=== PATIENT | female | born 1970 | race Caucasian/White ===

== ENCOUNTER → 2017-08-03 | Outpatient (REF) | payer OTHER | LOC: M SFHCWAGY 11:16 | DX: Z12.4 Encounter for screening for malignant neoplasm of cervix (principal) ==

== ENCOUNTER → 2017-08-03 | Outpatient (CLI) | payer BC | LOC: M WHC 10:48 | DX: Z12.31 Encounter for screening mammogram for malignant neoplasm of breast (principal); Z92.89 Personal history of other medical treatment | CPT/HCPCS: G0202 ==

== ENCOUNTER → 2018-08-16 | Outpatient (CLI) | payer BC ==
--- NOTE | 2018-08-16 12:30 | REPMRS ---
Patient History The patient states she had a clinical breast exam in 08/2018. Patient is nulliparous. No known family history of cancer. Benign excisional biopsy of the right breast, 1990. No Hormone Replacement Therapy Digital Woman Screen Mammo: August 16, 2018 - Exam #: [id number] Bilateral CC and MLO view(s) were taken. Technologist: Vane Bae, Technologist Prior study comparison: August 03, 2017, digital woman screen mammo performed at [facility]. March 10, 2015, digital woman screen mammo performed at [facility]. May 17, 2013, digital woman screen mammo performed at [facility]. FINDINGS: There are scattered fibroglandular densities. There has been no change in the appearance of the mammogram from the prior studies. There is a mild amount of scattered fibroglandular density which is fairly symmetric. There is no interval development of dominant mass, architectural distortion, or clustered microcalcification suggestive of malignancy. 3-D tomosynthesis shows no additional findings. Assessment: BI-RADS/ACR category 1 mammogram. Negative. Recommendation Routine screening mammogram of both breasts in 1 year (for women over age 40). This patient's Lifetime Breast Cancer RIsk is estimated at 13.3 %. This mammogram was interpreted with the aid of an FDA-approved computer-aided dectection system. Electronically Signed By: Carter Rogers MD 08/16/18 [id number]
== END ==
LOC: M WHC 08:53
PROVIDERS: ATTEND Nurse Practitioner Family
DX: Z12.31 Encounter for screening mammogram for malignant neoplasm of breast (principal)

== ENCOUNTER → 2018-08-16 | Outpatient (REF) | payer OTHER ==
[2018-08-17 15:05] LABS: HPV HYBRID CAPTURE II Negative (Negative)
== END ==
LOC: M SFHCWAGY 09:22
PROVIDERS: ATTEND Nurse Practitioner Family
DX: Z12.4 Encounter for screening for malignant neoplasm of cervix (principal); R87.5 Abnormal microbiological findings in specimens from female genital organs
CPT/HCPCS: 87624; G0123

== ENCOUNTER → 2019-05-10 | Outpatient (REF) | payer OTHER ==
[2019-05-10 11:45] LABS: ALBUMIN 3.9 GM/DL (3.2-5.2); ALT/SGPT 36 U/L (12-78); BILIRUBIN,TOTAL 0.5 MG/DL (0.2-1.0); BLOOD UREA NITROGEN 13 MG/DL (7-18); CALCIUM LEVEL 9.1 MG/DL (8.5-10.1); CARBON DIOXIDE LEVEL 32 MEQ/L (21-32); CHLORIDE LEVEL 105 MEQ/L (98-107); CHOLESTEROL LEVEL 174 MG/DL (<200); CHOLESTEROL RISK RATIO 2.485 (<5); CREATININE FOR GFR 0.82 MG/DL (0.55-1.30); GLOMERULAR FILTRATION RATE > 60.0 (>58); GLUCOSE, FASTING 87 MG/DL (70-100); HDL CHOLESTEROL 70 MG/DL (>40); LDL CHOLESTEROL 89 MG/DL (<100); NON-HDL-C 104 MG/DL; POTASSIUM SERUM 4.5 MEQ/L (3.5-5.1); SODIUM LEVEL 141 MEQ/L (136-145); TOTAL PROTEIN 7.2 GM/DL (6.4-8.2); TRIGLYCERIDES LEVEL 76 MG/DL (<150)
== END ==
LOC: M SFHCCLAY 07:51
PROVIDERS: ATTEND Family Medicine
DX: Z00.00 Encounter for general adult medical examination without abnormal findings (principal); Z13.220 Encounter for screening for lipoid disorders

== ENCOUNTER → 2019-08-17 | Outpatient (CLI) | payer BC, OTHER ==
--- NOTE | 2019-08-17 13:02 | REPMRS ---
Patient History The patient states she had a clinical breast exam in 2019. No known family history of cancer. Benign excisional biopsy of the right breast, 1990. No Hormone Replacement Therapy Digital Woman Screen Mammo: August 17, 2019 - Exam #: [id number] Bilateral CC and MLO view(s) were taken. Technologist: Sammie Ramos, Technologist Prior study comparison: August 16, 2018, bilateral digital woman screen mammo performed at [facility]. August 03, 2017, digital woman screen mammo performed at [facility]. March 10, 2015, digital woman screen mammo performed at [facility]. FINDINGS: The breast tissue is heterogeneously dense. This may lower the sensitivity of mammography. There is a moderate amount of heterogeneously dense fibroglandular tissue which is fairly symmetric. There is no interval development of dominant mass, architectural distortion, or grouped microcalcification typical of malignancy. There has been no change in the appearance of the mammogram from the prior studies. 3-D tomosynthesis shows no additional findings. Assessment: BI-RADS/ACR category 1 mammogram. Negative Mammogram. Recommendation Routine screening mammogram of both breasts in 1 year (for women over age 40). This patient's Lifetime Breast Cancer RIsk is estimated at 13.1 %. This mammogram was interpreted with the aid of an FDA-approved computer-aided dectection system. Electronically Signed By: Carter Rogers MD 08/17/19 [id number]
== END ==
LOC: M WHC 09:58
PROVIDERS: ATTEND Nurse Practitioner Family
DX: Z12.31 Encounter for screening mammogram for malignant neoplasm of breast (principal)

== ENCOUNTER 2019-12-21 22:43 | Inpatient (IN) | payer BC, OTHER ==
[~2019-12-21] VITALS: Ht 180.3 cm; Wt 97.5 kg
[2019-12-22] VITALS (7 sets, daily range): BP systolic 129–139; BP diastolic 69–88
[2019-12-22 00:45] LABS: BASO % 0.5 % (0.0-1.0); EOS # 0.2 10^3/uL (0.0-0.5); HEMATOCRIT 37.3 % (36.0-47.0); HEMOGLOBIN 12.3 g/dl (12.0-15.5); LYMPH # 1.3 10^3/uL (1.5-5.0); LYMPH % 14.6 % (24.0-44.0); MEAN CORPUSCULAR HEMOGLOBIN 30.3 pg (27.0-33.0); MEAN CORPUSCULAR VOLUME 91.9 fl (80.0-96.0); MONO # 0.7 10^3/uL (0.0-0.8); MONO % 7.7 % (0.0-5.0); NEUTROPHILS # 6.4 10^3/uL (1.5-8.5); NEUTROPHILS % 74.9 % (36.0-66.0); PLATELET COUNT, AUTOMATED 158 10^3/uL (150-450); RED BLOOD COUNT 4.06 10^6/uL (4.00-5.40); WHITE BLOOD COUNT 8.6 10^3/uL (4.0-10.0)
[2019-12-22 00:56] LABS: INR 1.24; PROTHROMBIN TIME 15.3 SECONDS (11.8-14.0)
[2019-12-22 00:57] LABS: PARTIAL THROMBOPLASTIN TIME 30.1 SECONDS (25.0-38.4)
[2019-12-22 01:29] LABS: BLOOD UREA NITROGEN 12 MG/DL (7-18); CALCIUM LEVEL 8.5 MG/DL (8.5-10.1); CARBON DIOXIDE LEVEL 28 MEQ/L (21-32); CHLORIDE LEVEL 104 MEQ/L (98-107); CK-MB VALUE MASS < 1.0 NG/ML (<3.6); CPK CREATINE PHOSPHOKINASE 41 U/L (26-192); CREATININE FOR GFR 0.71 MG/DL (0.55-1.30); FREE THYROXINE INDEX 3.6 % (1.3-4.8); GLOMERULAR FILTRATION RATE > 60.0 (>58); GLUCOSE, FASTING 105 MG/DL (70-100); MB/CK RELATIVE INDEX 2.44 (< OR =4); POTASSIUM SERUM 3.8 MEQ/L (3.5-5.1); SODIUM LEVEL 139 MEQ/L (136-145); T UPTAKE 34 % (30-39); THYROXINE (T4) 10.6 UG/DL (4.5-12.0); TROPONIN I < 0.02 NG/ML (< 0.10)
[2019-12-22] MEDS ORDERED: ISOVUE-370 76% 100ML VIAL As Ordered ONE (01:45)
--- NOTE | 2019-12-22 02:35 | REPVR ---
PROCEDURE INFORMATION: Exam: CT Angiography Chest With Contrast Exam date and time: 12/22/19 (1:55am) Age: 49 years old Clinical indication: Dyspnea and chest pain TECHNIQUE: Imaging protocol: Computed tomographic angiography of the chest with intravenous contrast. 3D rendering: MIP and/or 3D reconstructed images were created by the technologist. Radiation optimization: All CT scans at this facility use at least one of these dose optimization techniques: automated exposure control; mA and/or kV adjustment per patient size (includes targeted exams where dose is matched to clinical indication); or iterative reconstruction. Contrast material: Iso Contrast volume: 75 ml Contrast route: Antecubital vein COMPARISON: No relevant prior studies available FINDINGS: Pulmonary arteries: Multiple acute bilateral pulmonary emboli -- in secondary and more peripheral arterial branches (including RLL, LLL, RUL, lingular, and perhaps CHANDRIKA branches)(to all lobes, or nearly all lobes). Aorta: Unremarkable. No aortic aneurysm. No aortic dissection. Lungs: Bibasilar hazy groundglass opacities. More confluent opacity posteriorly at the left lung base. No masses. Pleural space: Unremarkable. No pneumothorax. No pleural effusions. Heart: Unremarkable. No cardiomegaly. No pericardial effusion. Lymph nodes: Unremarkable. No enlarged lymph nodes. Bones/joints: Unremarkable. No acute fracture. Soft tissues: Unremarkable. IMPRESSION: Acute bilateral pulmonary emboli, involving numerous lobes, bilaterally. No 'saddle embolus'. No acute aortic pathology. Groundglass opacities at each lung base. More confluent, extensive infiltrate at the left lung base -- perhaps a concomitant pneumonia. Electronically signed by: Margaret Peralta On 12/22/2019 02:34:38 AM
[2019-12-22] MEDS ORDERED: AZITHROMYCIN INJ 500 MG, VIAL MATE ADAPTER 1 EACH in D5W 250 ML IV ONE (02:45)
[2019-12-22] MEDS ORDERED: HEPARIN DRIP 25,000 UNITS in IV 1 EA IV SCH ×2 (02:57→10:52)
[2019-12-22] MEDS ORDERED: HEPARIN SOD (PORCINE) 5000UNITS/ML VIAL (J1644 PER 1000UNITS) IV ONE ×2 (03:00→11:00)
[2019-12-22] MEDS ORDERED: cefTRIAXone SOD 1 GM in D5W MINI-BAG PLUS 50 ML IV ONE (03:00)
[2019-12-22] MEDS ORDERED: CYAN100050 PO (03:36)
[2019-12-22] MEDS ORDERED: VITA500038 PO (03:36)
[2019-12-22] MEDS ORDERED: ACET-1146 PO (03:36)
[2019-12-22 03:39] LABS: C REACTIVE PROTEIN QUANTITATIV 6.64 MG/DL (0.00-0.30); LDH LACTATE DEHYDROGENASE 245 U/L (84-246)
[2019-12-22] MEDS ORDERED: ALBUTEROL 90 MCG/ACT 8GM HFA INHALER INH PRN (03:45)
[2019-12-22 04:10] LABS: D-DIMER QUANT > 4000 ng/ml (<500)
--- NOTE | 2019-12-22 04:24 | HPEPDOC ---
[facility] Medical History & Physical Date of Admission December 22, 2019 Date of Service: December 22, 2019 Primary Care Physician: Ralph Salas Attending Physician: LINN SANCHEZ MD History and Physical CHIEF COMPLAINT: SOB with pleuritic chest pain HISTORY OF PRESENT ILLNESS: Kacey is a very pleasant 49-year-old female with no significant medical history other than bilateral cataracts and previous detached retina (right eye) who presented to the ED with a chief complaint of shortness of breath and pleuritic chest pain. On afternoon (12/19), patient began to have discomfort with inspiration, which led to anxiety and subsequent shortness of breath. That evening she also felt feverish and had an oral temperature of 100.1. She called her PCPs office on Tuesday morning regarding her symptoms and subsequently received COVID-19 testing in the afternoon. Come Tuesday evening around 7 PM, the patient was lying on her right side and acutely began to expe rience sharp pleuritic chest pain even worse than the day before over her left flank radiating to her back and up into her neck. The pain soon transitioned from only with respiration, to a constant pain. She then began to experience associated palpitations. It was at this point that she presented to the ED. Her only recent travel was returning from [place] in early October. She takes no medications on an outpatient basis, and has had no recent sick contacts as she has been staying home and not working. In the ED, she was afebrile, hemodynamically stable and initial labs (CBC, BMP, ABG) were relatively unremarkable other than CRP of 6.64. A CTA showed bilateral showering of pulmonary emboli with no saddle embolus. There was also by basilar groundglass opacities. Rapid Covid testing was performed and was negative. She verbally confirms her CODE STATUS is full code. PAST MEDICAL HISTORY: Bilateral cataracts, s/p surgical removal Detached retina, right eye PAST SURGICAL HISTORY: Surgical removal of right breast cyst, ultimately benign Two right knee ACL surgeries Right knee meniscal repair SOCIAL HISTORY: , lives at home with her . 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 Denies current or former tobacco use. Drinks alcohol socially. Denies current or former illegal drug use. FAMILY HISTORY: Father: Provoked DVT, 2018 Mother's side of the family has a history of aneurysms ALLERGIES: Allergic to morphine in the form of significant nausea and vomiting. REVIEW OF SYSTEMS: CONSTITUTIONAL: Endorses recent fever. Denies chills, night sweats, unintentional change in weight HEENT:. Denies rhinorrhea, nasal congestion, dysphagia, odynophagia, recent changes in baseline vision or hearing. CARDIOVASCULAR: Endorses palpitations with significant pleuritic chest pain. Denies typical chest pain or chest pressure RESPIRATORY: Endorses shortness of breath as a result of inspiratory pleuritic chest pain; endorses dry cough. GASTROINTESTINAL: Denies abdominal pain, nausea, vomiting, diarrhea, const ipation GENITOURINARY: Denies dysuria or hematuria. MUSCULOSKELETAL: Denies specific myalgias or arthralgias NEUROLOGICAL:. Denies numbness, paresthesias, difficulty focusing or concentrating. HOME MEDICATIONS: Please see below. PHYSICAL EXAMINATION: VITAL SIGNS: Temperature 98.2, pulse 76, respiratory rate 18, blood pressure 124/76, pulse oximetry 100 % on room air. GENERAL APPEARANCE: Pleasant female who appears stated age. Well- developed, well-nourished. Lying upright in bed. No acute distress. Alert and oriented 3. HEENT: Normocephalic, atraumatic., Anicteric, noninjected sclera. Trachea is midline. Oropharyngeal exam was deferred as patient's Covid result had not yet returned. CARDIOVASCULAR: Regular rate, regular rhythm. +S1, S2., No murmur, rub or gallop appreciated. Adequate capillary refill. 2+ radial and posterior tibial pulses bilaterally. LUNGS: Faint crackles left lung base posteriorly with diminished breath sounds secondary to decreased tidal volume. No wheezes or rhonchi appreciated. Symmetric chest expansion. Speaking full sentences. Breathing room air. No accessory muscle use. ABDOMEN: Soft, nontender and nondistended with no guarding or rigidity. Hyp oactive bowel sounds. EXTREMITIES: Lower extremities free of edema with no clubbing or signs of cyan osis NEUROLOGICAL: Awake, alert and oriented 3. No focal neurologic deficits appreciated. Non-dysarthric speech. This monitored appropriately to questions and commands. PSYCHIATRIC: Mood and affect appear appropriate. LABORATORY DATA: Please see below. IMAGING: CT angiography of the chest with contrast, 12/22/19: Impression acute bilateral pulmonary emboli, involving numerous lobes, bilaterally. No 'saddle embolus.' No acute aortic pathology. Groundglass opacities at each lung base. More confluent, extensive infiltrate at the left lung base - - perhaps a concomitant pneumonia. MICROBIOLOGY: Please see below. ASSESSMENT & PLAN: This is a 49yo female without a very significant past medical history of present the ED with pleuritic chest pain, shortness of breath, and palpitati ons with recent fever, who was found to have bilateral pulmonary emboli throughout multiple lung lobes, as well as bi-basilar groundglass opacities. #Acute bilateral pulmonary emboli -Etiology at this point is unknown but appears to be unprovoked since patient has no recent extensive travel, periods of immobility, significant musculoskeletal injuries/fractures, does not take oral contraceptives or estrogen-based agents of any kind -Heparinized overnight on gtt, with likely plan to switch to PO noac (eliquis) to follow during day -on telemetry -After patient is anticoagulated and stabilized for discharge, recommendation is for outpatient follow-up with hematology to pursue etiology in setting of unprovoked PE: hypercoagulopathies, malignancies, etc. #Community acquired pneumonia -Chest CTA showed bibasilar groundglass opacities with more extensive infiltrate at the left lung base -Afebrile, hemodynamically stable, no elevated WBC -Started on empiric antibiotics: Ceftriaxone, azithromycin -pro-calcitonin ordered -prn q4h albuterol inhaler -sputum Cx, test for atypical pna agents, and incentive spirometry ordered -rapid COVID negative test in ED #DVT prophylaxis: heparin gtt for acute b/l PE Vital Signs Vital Signs Date Time Temp Pulse Resp B/P (MAP) Pulse Ox O2 Delivery O2 Flow Rate FiO2 12/22/19 02:43 76 100 12/22/19 01:30 124/76 (92) 12/21/19 23:00 98.2 18 Room Air Laboratory Data Labs 24H Laboratory Tests 2 12/22/19 00:28: Immature Granulocyte % (Auto) 0.3, Neutrophils (%) (Auto) 74.9H, Lymphocytes (%) (Auto) 14.6L, Monocytes (%) (Auto) 7.7H, Eosinophils (%) (Auto) 2.0, Basophils (%) (Auto) 0.5, Neutrophils # (Auto) 6.4, Lymphocytes # (Auto) 1.3L, Monocytes # (Auto) 0.7, Eosinophils # (Auto) 0.2, Basophils # (Auto) 0.0, Nucleated Red B lood Cells % (auto) 0.0, Prothrombin Time 15.3H, Prothromb Time International Ratio 1.24, Activated Partial Thromboplast Time 30.1, D-Dimer, Quantitative > 4000H, Anion Gap 7L, Glomerular Filtration Rate > 60.0, Calcium Level 8.5, Lactate Dehydrogenase 245, Total Creatine Kinase 41, Creatine Kinase MB < 1.0, Creatine Kinase MB Relative Index 2.44, Troponin I < 0.02, C-Reactive Protein, Quantitative 6.64H, Thyroid Stimulating Hormone (TSH) 2.330, Free Thyroxine Index 3.6, Thyroxine (T4) 10.6, Triiodothyronine (T3) Uptake 34 12/22/19 00:42: POC pH (Misc Panel) 7.430, POC Base Excess (Misc Panel) 2.0, POC Saturated Percent O2 (Misc) 96, POC pO2 (Misc Panel) 82.0, POC pCO2 (Misc Panel) 38.8, POC HCO3 (Misc Panel) 25.8, POC Total CO2 (Misc Panel) 27.0 12/22/19 03:49: CBC/BMP Laboratory Tests 12/22/19 00:28 Home Medications Scheduled Cholecalciferol (Vitamin D3) (Vitamin D3) 125 Mcg Tablet, 125 MCG PO DAILY Cyanocobalamin (Vitamin B-12) (Vitamin B-12) 1,000 Mcg Tablet, 1,000 MCG PO DAILY Scheduled PRN Acetaminophen/Diphenhydramine (Acetaminophen-Diphenhyd 500-25) 1 Each Tablet, 2 TAB PO QHS PRN for PAIN Allergies Coded Allergies: morphine (Verified Adverse Reaction, Intermediate, nausea , 12/21/19) GME ATTESTATION My faculty preceptor for this patient encounter was physically present during the encounter and was fully available. All aspects of the patient interview, examination, medical decision making process, and medical care plan development were reviewed and approved by the faculty preceptor. The faculty preceptor is aware and concurs with the plan as stated in the body of this note and will attest to such by his/her cosignature. ATTENDING NOTE I independently examined and discussed the plan for Ms. Combs with the resident physician and agree with the above assessment and plan. 49 yo W with no significant past medical history who presented wtih SOB and exertional chest pain and found to have multifocal PNA and bilateral numerous scattered PEs with out a clear precipitant at this time. Initially her history was suggestive of possible covid-19 given recent exposure to a client who returned from [place] in October and recently went to [place] in October, and she had recent fever, chills 2d prior to presentation. COvid-19 was ultimately negative, and we are going to continue heparin gtt that was started in the ED and ceftriaxone/azithro for CAD with pending infectious workup and will require investigation for etiology of PEs. A-FIB/CHADSVASC A-FIB History Current/History of A-Fib/PAF?: No Current PO Anticoag Therapy: No (getting heparin gtt) SHERIN FRAGOSO D.O. December 22, 2019 04:24 LINN SANCHEZ MD December 22, 2019 21:40
[2019-12-22] MEDS: CYANOCOBALAMIN 500 MCG TAB PO SCH (09:34)
[2019-12-22] MEDS ORDERED: RIVAROXABAN 15 MG TAB (XARELTO) PO SCH (10:45)
[2019-12-22] MEDS ORDERED: HEPARIN SOD (PORCINE) 5000UNITS/ML VIAL (J1644 PER 1000UNITS) IV PRN (11:00)
[2019-12-22 11:33] LABS: HEMATOCRIT 39.8 % (36.0-47.0); HEMOGLOBIN 13.1 g/dl (12.0-15.5); MEAN CORPUSCULAR HEMOGLOBIN 30.5 pg (27.0-33.0); MEAN CORPUSCULAR HGB CONC 32.9 g/dl (32.0-36.5); MEAN CORPUSCULAR VOLUME 92.8 fl (80.0-96.0); PLATELET COUNT, AUTOMATED 179 10^3/uL (150-450); RED BLOOD COUNT 4.29 10^6/uL (4.00-5.40)
--- NOTE | 2019-12-22 12:18 | IPNPDOC ---
Date Seen The patient was seen on 12/22/19. Progress Note SUBJECTIVE: Patient had no overnight events, saturating well on room air, able to speak full sentences. She reports no change in left lateral rib pain. LDH within normal limits. OBJECTIVE PHYSICAL EXAMINATION: VITAL SIGNS: Please see below. GENERAL: Female in No distress HEENT: Normocephalic, atraumatic, moist mucous membranes NECK: Supple CARDIOVASCULAR EXAMINATION: S1, S2 RESPIRATORY EXAMINATION: Diminished breath sounds on the right ABDOMINAL EXAMINATION: Soft, nontender, nondistended, positive bowel sounds EXTREMITIES: no edema SKIN: No rash NEUROLOGICAL EXAMINATION: Awake PSYCHIATRIC EXAMINATION: Calm and cooperative, appropriate affect LABORATORY DATA, IMAGING STUDIES, MICROBIOLOGY: Please see below. ASSESSMENT AND PLAN: Patient is a 49-year-old female with PMH of obesity (BMI of 29) presenting with unprovoked PE. #Unprovoked PE, patient does not smoke, reports active, not sedentary lifestyle, no family history of dyscrasias, currently not on control. We'll obtained a CT abdomen and pelvis to evaluate for pancreatic cancer, will also order CT chest with contrast to further evaluate infiltrate, bilateral lower extremity Dopplers for DVT, will also order protein C, protein S, factor V Leiden, antithrombin 3, Cardiolipin and serology. -Will continue heparin GTT, evaluate for PTT and INR, will start warfarin bridge with an INR goal 2-3 -Will also order hepatic panel, lipase level, if elevated, will order CA-19-9, CEA -If negative workup, we'll discharge patient on at least 3 months of anticoagulation with PCP follow-up in one week #obesity: wt loss encouraged, f/u outpt #Infiltrate, likely secondary to CAP vs oncological etiology: Continue antibiotics, elevated CRP DVT ppx: See above Full code Dispo: pending results VS, I&O, 24H, Fishbone Vital Signs/I&O Vital Signs Date Time Temp Pulse Resp B/P (MAP) Pulse Ox O2 Delivery O2 Flow Rate FiO2 12/22/19 06:15 99.9 85 18 138/88 (105) 100 Room Air Laboratory Data 24H LABS Laboratory Tests 2 12/22/19 00:28: Immature Granulocyte % (Auto) 0.3, Neutrophils (%) (Auto) 74.9H, Lymphocytes (%) (Auto) 14.6L, Monocytes (%) (Auto) 7.7H, Eosinophils (%) (Auto) 2.0, Basophils (%) (Auto) 0.5, Neutrophils # (Auto) 6.4, Lymphocytes # (Auto) 1.3L, Monocytes # (Auto) 0.7, Eosinophils # (Auto) 0.2, Basophils # (Auto) 0.0, Nucleated Red Blood Cells % (auto) 0.0, Prothrombin Time 15.3H, Prothromb Time International Ratio 1.24, Activated Partial Thromboplast Time 30.1, D-Dimer, Quantitative > 4000H, Anion Gap 7L, Glomerular Filtration Rate > 60.0, Calcium Level 8.5, Lactate Dehydrogenase 245, Total Creatine Kinase 41, Creatine Kinase MB < 1.0, Creatine Kinase MB Relative Index 2.44, Troponin I < 0.02, C-Reactive Protein, Quantitative 6.64H, Thyroid Stimulating Hormone (TSH) 2.330, Free Thyroxine Index 3.6, Thyroxine (T4) 10.6, Triiodothyronine (T3) Uptake 34 12/22/19 00:42: POC pH (Misc Panel) 7.430, POC Base Excess (Misc Panel) 2.0, POC Saturated Percent O2 (Misc) 96, POC pO2 (Misc Panel) 82.0, POC pCO2 (Misc Panel) 38.8, POC HCO3 (Misc Panel) 25.8, POC Total CO2 (Misc Panel) 27.0 12/22/19 03:49: Coronavirus (COVID-19)(PCR) NEGATIVE CBC/BMP Laboratory Tests 12/22/19 00:28 AZUCENA AUGUST MD December 22, 2019 07:13
[2019-12-22 12:51] LABS: ALBUMIN 3.5 GM/DL (3.2-5.2); BILIRUBIN,DIRECT 0.2 MG/DL (0.0-0.2); BILIRUBIN,TOTAL 0.4 MG/DL (0.2-1.0); TOTAL PROTEIN 7.8 GM/DL (6.4-8.2)
--- NOTE | 2019-12-22 14:01 | REP ---
Clinical: Pulmonary embolus . Technique: Peralta scale and color Doppler evaluation of the bilateral lower extremities using linear high frequency transducer. Findings: Left lower extremity demonstrates normal compressibility and wave patterns in response to respiration and augmentation without evidence for deep venous thrombosis. Right lower extremity demonstrates small focal area of nonocclusive thrombus in the popliteal vein. Remainder of the examination is normal. Impression: Focal area of acute nonocclusive thrombus in the right popliteal vein. Electronically Signed by Oh Sanchez MD 12/22/2019 01:52 P
[2019-12-22] MEDS: HEPARIN SOD (PORCINE) 5000UNITS/ML VIAL (J1644 PER 1000UNITS) IV PRN (17:00)
[2019-12-22] MEDS: WARFARIN SOD 5 MG TAB PO SCH (17:02)
[2019-12-22] MEDS: HEPARIN DRIP 25,000 UNITS in IV 1 EA IV SCH (22:57)
[2019-12-22] MEDS ORDERED: IBUPROFEN 400 MG TAB PO PRN (23:15)
[2019-12-23 04:15] VITALS: BP 120/67
[2019-12-23] MEDS ORDERED: AZITHROMYCIN INJ 500 MG, VIAL MATE ADAPTER 1 EACH in D5W 250 ML IV SCH (05:00)
[2019-12-23 05:49] LABS: HEMATOCRIT 38.3 % (36.0-47.0); HEMOGLOBIN 12.6 g/dl (12.0-15.5); MEAN CORPUSCULAR HEMOGLOBIN 30.6 pg (27.0-33.0); MEAN CORPUSCULAR HGB CONC 32.9 g/dl (32.0-36.5); PLATELET COUNT, AUTOMATED 194 10^3/uL (150-450); RED BLOOD COUNT 4.12 10^6/uL (4.00-5.40); WHITE BLOOD COUNT 7.7 10^3/uL (4.0-10.0)
[2019-12-23 06:00] LABS: INR 1.24; PROTHROMBIN TIME 15.3 SECONDS (11.8-14.0)
[2019-12-23] MEDS ORDERED: cefTRIAXone SOD 2 GM in D5W MINI-BAG PLUS 50 ML IV SCH (06:00)
[2019-12-23 06:02] LABS: PARTIAL THROMBOPLASTIN TIME 84.2 SECONDS (25.0-38.4)
[2019-12-23 06:48] LABS: ALBUMIN 3.3 GM/DL (3.2-5.2); ALT/SGPT 160 U/L (12-78); BILIRUBIN,DIRECT 0.3 MG/DL (0.0-0.2); BLOOD UREA NITROGEN 10 MG/DL (7-18); CALCIUM LEVEL 8.5 MG/DL (8.5-10.1); CARBON DIOXIDE LEVEL 27 MEQ/L (21-32); CHLORIDE LEVEL 103 MEQ/L (98-107); CREATININE FOR GFR 0.63 MG/DL (0.55-1.30); GLOMERULAR FILTRATION RATE > 60.0 (>58); GLUCOSE, FASTING 90 MG/DL (70-100); MAGNESIUM LEVEL 2.2 MG/DL (1.8-2.4); SODIUM LEVEL 138 MEQ/L (136-145); TOTAL PROTEIN 7.6 GM/DL (6.4-8.2)
[2019-12-23 07:33] VITALS: BP 117/72
[2019-12-23] MEDS: CYANOCOBALAMIN 500 MCG TAB PO SCH (08:16)
[2019-12-23] MEDS: GASTROGRAFIN SOLUTION 30ML PO SCH ×2 (08:16→08:51)
--- NOTE | 2019-12-23 10:17 | REP ---
Clinical: Pneumonia. Technique: Axial contrast enhanced images from the thoracic inlet to the upper abdomen with coronal and sagittal re-formations using 100 ml Isovue 370 intravenous contrast material (followed by CT of the abdomen and pelvis). Comparison: 12/22/2019 Findings: Current examination is suboptimal for the evaluation of previously diagnosed bilateral pulmonary emboli although there are suggestions for continued emboli to the bilateral lower lobes. Left lower lobe consolidation/atelectasis appears slightly increased from prior examination along with small left pleural effusion, with lingular and trace right basilar atelectasis noted. No pneumothorax. No significant adenopathy. Mediastinum demonstrates normal thoracic aorta and heart/pericardium. Surrounding musculoskeletal structures are intact without acute osseous abnormality. Impression: 1. Moderate left lower lobe consolidation/atelectasis along with trace lingular and right lower lobe atelectasis. 2. Previously identified pulmonary emboli are poorly distinguished on current examination due to technique. Electronically Signed by Oh Sanchez MD 12/23/2019 10:09 A
--- NOTE | 2019-12-23 10:23 | REP ---
Clinical: Evaluate for possible pancreatic cancer. Technique: Axial contrast enhanced images from the lung bases to the pubic symphysis using oral (per protocol) and 100 ml Isovue 370 intravenous contrast material with coronal and sagittal re-formations. Comparison: None. Findings: Moderate left lower lobe consolidation/atelectasis and trace right basilar atelectasis noted. Liver, spleen, pancreas, gallbladder, and bilateral adrenal glands appear normal. The enteric system is without obstruction or acute inflammatory process. The kidneys are essentially normal in appearance with 8 mm simple left renal cyst identified as well as fullness to the bilateral collecting systems including newly ureters extending into the pelvis likely secondary to extrinsic compression by large bilateral complex adnexal cystic lesions. Further evaluation of the pelvis demonstrates normal appearance to the uterus and bladder. No ascites. No adenopathy. No free air. Abdominal aorta and vasculature appear normal. Osseous structures intact without acute abnormality. Impression: 1. Large complex bilateral adnexal cystic lesions. Pelvic ultrasound should be considered for further investigation. These findings seemed to cause mild fullness to the bilateral urinary collecting system likely due to extrinsic compression of the distal ureters. 2. Simple 8 mm left renal cyst. Electronically Signed by Oh Sanchez MD 12/23/2019 10:15 A
[2019-12-23 10:44] VITALS: BP 127/80
--- NOTE | 2019-12-23 11:19 | IPNPDOC ---
Date Seen The patient was seen on 12/23/19. Progress Note SUBJECTIVE: No o/n events. Pt reports consuming chlorella supplement from 07/2019-10/2019, which can increase vitamin K levels. Performed CT chest and abdomen, CT chest reveals no changes from previous with moderate LLL consolidation/atelectasis with trace lingular and right lower lobe atelectasis. CT abdomen with contrast, however, did reveal large complex bilateral adnexal cystic lesions with recommendations for a pelvic ultrasound. There is also a simple cyst. 8 mm on the left kidney. OBJECTIVE OBJECTIVE PHYSICAL EXAMINATION: VITAL SIGNS: Please see below. GENERAL: Female in No distress HEENT: Normocephalic, atraumatic, moist mucous membranes NECK: Supple CARDIOVASCULAR EXAMINATION: S1, S2 RESPIRATORY EXAMINATION: Diminished breath sounds on the right ABDOMINAL EXAMINATION: Soft, nontender, nondistended, positive bowel sounds EXTREMITIES: no edema SKIN: No rash NEUROLOGICAL EXAMINATION: Awake PSYCHIATRIC EXAMINATION: Calm and cooperative, appropriate affect LABORATORY DATA, IMAGING STUDIES, MICROBIOLOGY: Please see below. ASSESSMENT AND PLAN: Patient is a 49-year-old female with PMH of obesity (BMI of 29) presenting with unprovoked PE. #Unprovoked PE, patient does not smoke, reports active, not sedentary lifestyle, no family history of dyscrasias, currently not on control. We'll obtained a CT abdomen and pelvis to evaluate for pancreatic cancer, will also order CT chest with contrast to further evaluate infiltrate, bilateral lower extremity Dopplers for DVT, will also order protein C, protein S, factor V Leiden, antithrombin 3, Cardiolipin and serology. -Will continue heparin GTT, evaluate for PTT and INR, will start warfarin bridge with an INR goal 2-3 -Will also order hepatic panel, lipase level, if elevated, will order CA-19-9, CEA -If negative workup, we'll discharge patient on at least 3 months of anticoagulation with PCP follow-up in one week -Started patient on warfarin, currently subtherapeutic, we'll continue to monitor INR #complex bilateral adnexal cystic lesions/Elevated transaminase: Clear etiology, will monitor, patient asymptomatic, will order CA 125 for multiple cysts found and adnexa, could be associated with liver, lipase 128, outpt f/u #Infiltrate, likely secondary to CAP vs oncological etiology: Continue antibiotics, elevated CRP -Transition to by mouth today, incentive spirometry #obesity: wt loss encouraged, f/u outpt DVT ppx: See above Full code Dispo: pending theraputic INR 32 minutes were spent on care VS, I&O, 24H, Fishbone Vital Signs/I&O Vital Signs Date Time Temp Pulse Resp B/P (MAP) Pulse Ox O2 Delivery O2 Flow Rate FiO2 12/23/19 07:33 97.5 76 16 117/72 (87) 99 Room Air I&O- Last 24 Hours up to 6 AM 12/23/19 06:00 Intake Total 3944 ml Output Total 3475 ml Balance 469 ml Laboratory Data 24H LABS Laboratory Tests 2 12/22/19 11:25: Nucleated Red Blood Cells % (auto) 0.0, Activated Partial Thromboplast Time 35.7 12/22/19 16:04: Activated Partial Thromboplast Time 47.9H 12/22/19 23:02: Activated Partial Thromboplast Time 111.0H 12/23/19 05:39: Nucleated Red Blood Cells % (auto) 0.0, Activated Partial Thromboplast Time 84.2H, Prothrombin Time 15.3H, Prothromb Time International Ratio 1.24, Anion Gap 8, Glomerular Filtration Rate > 60.0, Calcium Level 8.5, Magnesium Level 2.2, Total Bilirubin 1.0#, Direct Bilirubin 0.3H, Aspartate Amino Transf (AST/SGOT) 75H, Alanine Aminotransferase (ALT/SGPT) 160H, Alkaline Phosphatase 376H, Total Protein 7.6, Albumin 3.3, Albumin/Globulin Ratio 0.8L 12/23/19 07:47: CBC/BMP Laboratory Tests 12/22/19 11:25 12/23/19 05:39 Microbiology Microbiology 12/22/19 Stool Occult Blood ([facility]) - Final, Complete AZUCENA AUGUST MD December 23, 2019 11:15
[2019-12-23] MEDS: HEPARIN SOD (PORCINE) 5000UNITS/ML VIAL (J1644 PER 1000UNITS) IV PRN (12:15)
[2019-12-23 14:00] VITALS: BP 158/83
[2019-12-23] MEDS: HEPARIN DRIP 25,000 UNITS in IV 1 EA IV SCH (15:10)
--- NOTE | 2019-12-23 15:38 | REP ---
Clinical: Complex bilateral adnexal cysts. Technique: Transabdominal pelvic ultrasound followed by transvaginal examination for better evaluation of the endometrium and adnexa with color Doppler evaluation of the ovaries. Findings: Bladder is normal and measures 14.3 x 12.2 by a 5.7 cm. Heterogeneous anteverted uterus measures 10.3 x 4.0 x 5.3 cm. Endometrial complex is thickened to 18 mm. A posterior left intramural fibroid is identified measuring 2.4 x 1.7 x 2.9 cm. The right ovary measures 9.6 x 7.7 x 6.3 cm (RI 0.79) and is dominated by a complex septated cystic changes. The left ovary measures 7.1 x 4.1 x 5.9 cm (RI 0.73) and demonstrates a complex mixed echotexture possibly representing large hemorrhagic cyst. No pelvic fluid. Impression: 1. Uterus demonstrates 2.9 cm posterior intramural fibroid and heterogeneous thickened endometrial complex to 18 mm. 2. Large complex bilateral adnexal/ovarian lesions may represent physiologic complex and hemorrhagic cysts although mass lesion cannot definitively be excluded. Short-term follow-up in 4-6 weeks to evaluate for resolution may be warranted. Electronically Signed by Oh Sanchez MD 12/23/2019 03:30 P
[2019-12-23] MEDS: WARFARIN SOD 5 MG TAB PO SCH (17:15)
--- NOTE | 2019-12-23 18:02 | DS.PDOC ---
Discharge Summary General Date of Admission December 22, 2019 at 03:39 Date of Discharge 12/24/19 Discharge Summary PROCEDURES PERFORMED DURING STAY: None. ADMITTING DIAGNOSES: 1. PE, unprovoked. DISCHARGE DIAGNOSES: 1.PE, RLE DVT, suspected adnexal/uterine CA. COMPLICATIONS/CHIEF COMPLAINT: Multifocal Pneumonia, Pulmonary Emboli. HISTORY OF PRESENT ILLNESS/HOSPITAL COURSE: Patient is a 49-year-old G0 F with PMH of obesity (BMI of 29) presenting with unprovoked PE confirmed on CTA Chest. Patient does not smoke, reports active, not sedentary lifestyle, no family history of dyscrasias, currently not on control, currently at [facility]- menopausal. Performed doppler u/s revealing RLE DVT. Patient was initially treated with heparin GTT with plans to transition to warfarin, current INR was subtherapeutic. However, due to further imaging results, anticoagulation was changed to Lovenox. There was also an infiltrate found on imaging, diagnosis CAP, will also be discharged on antibiotic course. CT chest reveals no changes from previous with moderate LLL consolidation/atelectasis with trace lingular and right lower lobe atelectasis. CT abdomen with contrast, however, did reveal large complex bilateral adnexal cystic lesions with recommendations for a pelvic ultrasound. There is also a simple cyst. 8 mm on the left kidney. Pelvic ultrasound reveals large complex bilateral ovarian lesions right ovary measuring 9.6 x 7.7 x 6.3 cm dominated by complex septal cystic changes, left ovary measuring 7.1 x 4.1 x 5.9 cm with complex mixed echotexture possibly representing large hemorrhagic cysts, uterus demonstrates 2.9. Posterior intramural fibroid and heterogeneous thickened endometrial complex 18 mm. Discussed case with [facility], Dr. Farshad Mcgee, obtained CEA 125 and human epididymis proteins 4, pending results. I'll up with [facility] in 1 week, also follow-up with PCP in 1 week. Other labs pending include protein C, protein S, factor V Leiden, antithrombin 3, Cardiolipin and serology. She'll be discharged on Lovenox 1.5 mg/kg every 24 hours. All questions were answered. DISCHARGE MEDICATIONS: Please see below. ALLERGIES: Please see below. OBJECTIVE PHYSICAL EXAMINATION: VITAL SIGNS: Please see below. GENERAL: Female in No distress HEENT: Normocephalic, atraumatic, moist mucous membranes NECK: Supple CARDIOVASCULAR EXAMINATION: S1, S2 RESPIRATORY EXAMINATION: slight diminished breaths sounds b/l ABDOMINAL EXAMINATION: Soft, nontender, nondistended, positive bowel sounds EXTREMITIES: no edema, b/l LE, nontender to palpation SKIN: No rash NEUROLOGICAL EXAMINATION: Awake PSYCHIATRIC EXAMINATION: Calm and cooperative, appropriate affect DISCHARGE CONDITION: Stable. TIME SPENT ON DISCHARGE: 32 minutes Vital Signs/I&Os Vital Signs Date Time Temp Pulse Resp B/P (MAP) Pulse Ox O2 Delivery O2 Flow Rate FiO2 12/23/19 14:00 98.7 95 19 158/83 (108) 97 12/23/19 07:33 Room Air I&O- Last 24 Hours up to 6 AM 12/23/19 06:00 Intake Total 3944 ml Output Total 3475 ml Balance 469 ml Laboratory Data Labs 24H Laboratory Tests 2 12/22/19 23:02: Activated Partial Thromboplast Time 111.0H 12/23/19 05:32: 12/23/19 05:39: Activated Partial Thromboplast Time 84.2H, Nucleated Red Blood Cells % (auto) 0.0, Prothrombin Time 15.3H, Prothromb Time International Ratio 1.24, Anion Gap 8, Glomerular Filtration Rate > 60.0, Calcium Level 8.5, Magnesium Level 2.2, Total Bilirubin 1.0#, Direct Bilirubin 0.3H, Aspartate Amino Transf (AST/SGOT) 75H, Alanine Aminotransferase (ALT/SGPT) 160H, Alkaline Phosphatase 376H, Total Protein 7.6, Albumin 3.3, Albumin/Globulin Ratio 0.8L 12/23/19 07:47: 12/23/19 10:55: Activated Partial Thromboplast Time 56.4H CBC/BMP Laboratory Tests 12/23/19 05:39 Microbiology Microbiology 12/23/19 Stool Occult Blood ([facility]) - Final, Complete 12/22/19 Stool Occult Blood ([facility]) - Final, Complete Discharge Medications Scheduled Azithromycin (Azithromycin) 250 Mg Tablet, 250 MG PO DAILY Cefdinir (Cefdinir) 300 Mg Capsule, 300 MG PO BID Cholecalciferol (Vitamin D3) (Vitamin D3) 125 Mcg Tablet, 125 MCG PO DAILY, (Reported) Cyanocobalamin (Vitamin B-12) (Vitamin B-12) 1,000 Mcg Tablet, 1,000 MCG PO DAILY, (Reported) Enoxaparin Sodium (Lovenox) 100 Mg/1 Ml Syringe, 150 MG SC Q24H Scheduled PRN Acetaminophen/Diphenhydramine (Acetaminophen-Diphenhyd 500-25) 1 Each Tablet, 2 TAB PO QHS PRN for PAIN, (Reported) Allergies Coded Allergies: morphine (Verified Adverse Reaction, Intermediate, nausea , 12/21/19) AZUCENA AUGUST MD December 23, 2019 17:54
[2019-12-23] MEDS ORDERED: AZIT-12 PO (18:06)
[2019-12-23] MEDS ORDERED: LOVE0.8I SC (18:06)
[2019-12-23] MEDS ORDERED: CEFD300CAP PO (18:06)
[2019-12-23] MEDS ORDERED: ENOXAPARIN 150MG/ML SYRINGE (J1650 PER 10MG) SC SCH (20:00)
[2019-12-23] MEDS: CEFDINIR 300 MG CAP (OMNICEF) PO SCH (20:22)
[2019-12-23 22:00] VITALS: BP 106/56
[2019-12-24 06:00] VITALS: BP 117/71
[2019-12-24 06:12] LABS: HEMOGLOBIN 12.2 g/dl (12.0-15.5); MEAN CORPUSCULAR VOLUME 91.1 fl (80.0-96.0); PLATELET COUNT, AUTOMATED 261 10^3/uL (150-450); RED BLOOD COUNT 4.06 10^6/uL (4.00-5.40); WHITE BLOOD COUNT 8.1 10^3/uL (4.0-10.0)
[2019-12-24] MEDS ORDERED: ISOVUE-370 76% 100ML VIAL ONE (06:16)
[2019-12-24 06:33] LABS: ALBUMIN 3.2 GM/DL (3.2-5.2); ALT/SGPT 229 U/L (12-78); BILIRUBIN,DIRECT 0.2 MG/DL (0.0-0.2); BILIRUBIN,TOTAL 0.6 MG/DL (0.2-1.0); BLOOD UREA NITROGEN 9 MG/DL (7-18); CALCIUM LEVEL 8.8 MG/DL (8.5-10.1); CARBON DIOXIDE LEVEL 25 MEQ/L (21-32); CHLORIDE LEVEL 106 MEQ/L (98-107); CREATININE FOR GFR 0.73 MG/DL (0.55-1.30); GLOMERULAR FILTRATION RATE > 60.0 (>58); GLUCOSE, FASTING 111 MG/DL (70-100); POTASSIUM SERUM 4.2 MEQ/L (3.5-5.1); SODIUM LEVEL 139 MEQ/L (136-145); TOTAL PROTEIN 7.7 GM/DL (6.4-8.2)
[2019-12-24] MEDS ORDERED: AZITHROMYCIN 250MG TABLET PO SCH (09:00)
[2019-12-24] MEDS: CYANOCOBALAMIN 500 MCG TAB PO SCH (09:18)
[2019-12-24] MEDS: CEFDINIR 300 MG CAP (OMNICEF) PO SCH (09:18)
--- NOTE | 2019-12-25 07:09 | ECGEPIP ---
[facility] - ED Test Date: 2019-12-21 Pat Name: MADELIN BAILEY Department: Room: [place] [address] Gender: Female [employer] Department Head: GAMALIEL : 1970 Requested By: OTILIO MEJIA Order Number: [id number] Reading MD: Josefa Zhang Measurements Intervals [place] Rate: 81 P: 40 DE: 128 QRS: 67 QRSD: 106 T: 35 QT: 387 QTc: 451 Interpretive Statements SINUS RHYTHM No prior Electronically Signed on 12-25-2019 7:08:42 EDT by Josefa Zhang
[2019-12-26 14:19] LABS: BODY FLUID CULTURE Not indicated. (.); LEGIONELLA ANTIGEN URINE Negative (Negative); ORGANISM ID Not indicated. (.); SPECIMEN SOURCE Urine (.); URINE STREP PNEUMONIAE ANTIGEN Negative (Negative)
== END 2019-12-24 11:25 | disposition home or self-care (01) | DRG 134 ==
LOC: M ED 22:43 → M ED INP 12-22 03:39 → ENRESERV 12-22 05:25 → M PCU 12-22 06:13 → M ICU 12-22 09:50 → M MSPAV 12-23 10:39
PROVIDERS: ADMIT Internal Medicine; ATTEND Family Medicine
DX: I26.99 Other pulmonary embolism without acute cor pulmonale (principal); J18.9 Pneumonia, unspecified organism; C55 Malignant neoplasm of uterus, part unspecified; E66.9 Obesity, unspecified; Z68.29 Body mass index [BMI] 29.0-29.9, adult; Z79.899 Other long term (current) drug therapy; Z88.5 Allergy status to narcotic agent; I82.431 Acute embolism and thrombosis of right popliteal vein

== ENCOUNTER → 2019-12-21 | Outpatient (CLI) | payer BC, OTHER ==
[~2019-12-21] MED LIST: ACET-1146 PO; AZIT-12 PO; CEFD300CAP PO; CYAN100050 PO; ISOVUE-370 76% 100ML VIAL As Ordered ONE; LOVE0.8I SC; VITA500038 PO
== END ==
LOC: M LABSMTC 12:41
PROVIDERS: ATTEND Family Medicine
DX: Z11.59 Encounter for screening for other viral diseases (principal); Z03.818 Encounter for observation for suspected exposure to other biological agents ruled out
CPT/HCPCS: C9803; U0003

== ENCOUNTER 2019-12-25 05:36 | Emergency (ER) | payer BC, OTHER ==
[~2019-12-25] VITALS: Ht 180.3 cm; Wt 97.7 kg
[~2019-12-25 05:36] MED LIST changes: -ISOVUE-370 76% 100ML VIAL As Ordered ONE
--- NOTE | 2019-12-25 06:17 | REP ---
Clinical: Chest pain. Technique: PA and lateral. Comparison: Chest CT dated 12/23/2019. Findings: Left lower lobe consolidation compatible with acute pneumonia again noted. No obvious effusion. No pneumothorax. Right hemithorax is clear. Visualized mediastinum and cardiac silhouette are normal. Skeletal structures are intact. Impression: Moderate left lower lobe consolidation compatible with pneumonia. Follow-up to resolution recommended. Electronically Signed by Oh Sanchez MD 12/25/2019 06:08 A
[2019-12-25 06:55] LABS: BASO % 0.5 % (0.0-1.0); EOS # 0.1 10^3/uL (0.0-0.5); HEMATOCRIT 35.5 % (36.0-47.0); HEMOGLOBIN 11.7 g/dl (12.0-15.5); LYMPH # 0.7 10^3/uL (1.5-5.0); LYMPH % 11.5 % (24.0-44.0); MEAN CORPUSCULAR HEMOGLOBIN 30.3 pg (27.0-33.0); MONO # 0.4 10^3/uL (0.0-0.8); MONO % 7.3 % (0.0-5.0); NEUTROPHILS # 4.5 10^3/uL (1.5-8.5); NEUTROPHILS % 79.4 % (36.0-66.0); PLATELET COUNT, AUTOMATED 252 10^3/uL (150-450); RED BLOOD COUNT 3.86 10^6/uL (4.00-5.40); WHITE BLOOD COUNT 5.7 10^3/uL (4.0-10.0)
[2019-12-25 07:06] LABS: INR 1.24; PROTHROMBIN TIME 15.3 SECONDS (11.8-14.0)
[2019-12-25 07:07] LABS: PARTIAL THROMBOPLASTIN TIME 43.1 SECONDS (25.0-38.4)
--- NOTE | 2019-12-25 07:17 | ECGEPIP ---
[facility] - ED Test Date: 2019-12-25 Pat Name: MADELIN BAILEY Department: Room: - Gender: Female Nps: KATY : 1970 Requested By: ROSY Culver Order Number: [id number] Reading MD: Josefa Zhang Measurements Intervals [place] Rate: 83 P: 38 SD: 153 QRS: 56 QRSD: 100 T: 14 QT: 374 QTc: 442 Interpretive Statements SINUS RHYTHM similar to prior EKG 12/21/19 Electronically Signed on 12-25-2019 7:17:50 EDT by Josefa Zhang
[2019-12-25 07:26] LABS: ALT/SGPT 199 U/L (12-78); BILIRUBIN,DIRECT 0.1 MG/DL (0.0-0.2); BILIRUBIN,TOTAL 0.5 MG/DL (0.2-1.0); BLOOD UREA NITROGEN 9 MG/DL (7-18); CALCIUM LEVEL 8.7 MG/DL (8.5-10.1); CARBON DIOXIDE LEVEL 27 MEQ/L (21-32); CHLORIDE LEVEL 108 MEQ/L (98-107); CK-MB VALUE MASS < 1.0 NG/ML (<3.6); CPK CREATINE PHOSPHOKINASE 68 U/L (26-192); CREATININE FOR GFR 0.64 MG/DL (0.55-1.30); FREE T4 1.54 NG/DL (0.76-1.46); GLOMERULAR FILTRATION RATE > 60.0 (>58); GLUCOSE, FASTING 99 MG/DL (70-100); LIPASE 132 U/L (73-393); MB/CK RELATIVE INDEX 1.47 (< OR =4); POTASSIUM SERUM 4.5 MEQ/L (3.5-5.1); SODIUM LEVEL 141 MEQ/L (136-145); TOTAL PROTEIN 7.2 GM/DL (6.4-8.2); TROPONIN I < 0.02 NG/ML (< 0.10)
--- NOTE | 2019-12-25 08:28 | REP ---
Right upper quadrant sonography: History: Elevated liver enzymes. Comparison study: Comparison CT study December 23, 2019. Findings: Scanning through the right upper quadrant of the abdomen demonstrates a normal sized, thin-walled gallbladder without evidence of stone or polyp. Common bile duct is normal measuring 0.4 cm in greatest diameter. No focal liver lesion is seen. Liver size is normal. No pancreatic abnormality is observed. No right renal abnormality is seen. There is no evidence of ascites. The right kidney measures 12.6 x 5.1 x 4.8 cm. No evidence of hydronephrosis sonographically. 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 Impression: Negative right upper quadrant sonography. Electronically Signed by Russell Rogers MD 12/25/2019 08:18 A
[2019-12-25 08:38] VITALS: BP 138/64
== END 2019-12-25 08:33 | disposition home or self-care (01) ==
LOC: M ED 05:36
DX: J18.1 Lobar pneumonia, unspecified organism (principal); I26.99 Other pulmonary embolism without acute cor pulmonale; Z86.718 Personal history of other venous thrombosis and embolism; Z86.711 Personal history of pulmonary embolism; Z88.5 Allergy status to narcotic agent; Z79.899 Other long term (current) drug therapy; Z79.2 Long term (current) use of antibiotics; Z74.01 Bed confinement status

== ENCOUNTER → 2019-12-27 | Outpatient (REF) | payer OTHER | LOC: M LABDRAWC 16:03 | PROVIDERS: ATTEND Obstetrics & Gynecology | DX: R97.1 Elevated cancer antigen 125 [CA 125] (principal); R19.03 Right lower quadrant abdominal swelling, mass and lump ==

== ENCOUNTER → 2020-01-01 | Outpatient (CLI) | payer BC, OTHER ==
--- NOTE | 2020-01-02 01:50 | REP ---
Clinical: Follow up left lower lobe pneumonia. Technique: PA and lateral. Comparison: 12/25/2019. Findings: Left lower lobe infiltrate with small pleural effusion again identified but improved from prior examination. Remainder of lung davis are clear and no new acute process is appreciated. The mediastinum and cardiac silhouette are normal. There is no evidence for pneumothorax. Skeletal structures are intact. Impression: Improving left lower lobe infiltrate and effusion. Electronically Signed by Oh Sanchez MD 01/02/2020 01:42 A
== END ==
LOC: M CLY 13:30
PROVIDERS: ATTEND Family Medicine
DX: J18.9 Pneumonia, unspecified organism (principal); J90 Pleural effusion, not elsewhere classified

== ENCOUNTER 2020-05-12 20:36 | Emergency (ER) | payer BC, OTHER ==
[~2020-05-12] VITALS: Ht 180.3 cm; Wt 106.2 kg
[2020-05-12 22:32] LABS: HEMATOCRIT 37.5 % (36.0-47.0); HEMOGLOBIN 12.4 g/dl (12.0-15.5); MEAN CORPUSCULAR HEMOGLOBIN 31.7 pg (27.0-33.0); MEAN CORPUSCULAR HGB CONC 33.1 g/dl (32.0-36.5); MEAN CORPUSCULAR VOLUME 95.9 fl (80.0-96.0); PLATELET COUNT, AUTOMATED 191 10^3/uL (150-450); RED BLOOD COUNT 3.91 10^6/uL (4.00-5.40); WHITE BLOOD COUNT 10.7 10^3/uL (4.0-10.0)
[2020-05-12 22:33] LABS: BASO # 0.1 10^3/uL (0.0-0.2); BASO % 0.5 % (0.0-1.0); EOS % 0.4 % (0.0-3.0); LYMPH % 18.3 % (24.0-44.0); MONO # 0.5 10^3/uL (0.0-0.8); MONO % 4.3 % (0.0-5.0); NEUTROPHILS # 8.1 10^3/uL (1.5-8.5); NEUTROPHILS % 75.1 % (36.0-66.0)
[2020-05-12 22:36] LABS: INR 0.89; PROTHROMBIN TIME 12.2 SECONDS (12.5-14.3)
[2020-05-12 22:37] LABS: PARTIAL THROMBOPLASTIN TIME 30.1 SECONDS (24.2-38.5)
[2020-05-12 22:44] LABS: ALBUMIN 3.8 GM/DL (3.2-5.2); ALT/SGPT 220 U/L (12-78); BILIRUBIN,DIRECT < 0.1 MG/DL (0.0-0.2); BILIRUBIN,TOTAL < 0.1 MG/DL (0.2-1.0); BLOOD UREA NITROGEN 15 MG/DL (7-18); CALCIUM LEVEL 9.3 MG/DL (8.5-10.1); CARBON DIOXIDE LEVEL 28 MEQ/L (21-32); CHLORIDE LEVEL 105 MEQ/L (98-107); CREATININE FOR GFR 1.03 MG/DL (0.55-1.30); GLOMERULAR FILTRATION RATE > 60.0 (>58); GLUCOSE, FASTING 146 MG/DL (70-100); POTASSIUM SERUM 3.4 MEQ/L (3.5-5.1); SODIUM LEVEL 140 MEQ/L (136-145); TOTAL PROTEIN 7.2 GM/DL (6.4-8.2)
[2020-05-12] MEDS ORDERED: POTASSIUM CHLORIDE 10 MEQ SR TABLET PO ONE (23:00)
[2020-05-13] VITALS: BP 134/72
== END 2020-05-13 00:35 | disposition home or self-care (01) ==
LOC: M ED 20:36
DX: N99.820 Postprocedural hemorrhage of a genitourinary system organ or structure following a genitourinary system procedure (principal); Z86.718 Personal history of other venous thrombosis and embolism; C55 Malignant neoplasm of uterus, part unspecified; Z88.6 Allergy status to analgesic agent; Z79.899 Other long term (current) drug therapy

== ENCOUNTER → 2020-05-15 | Outpatient (REF) | payer OTHER | LOC: M SFHCCLAY 11:16 | PROVIDERS: ATTEND Family Medicine | DX: R21 Rash and other nonspecific skin eruption (principal) ==

== ENCOUNTER → 2023-01-06 | Outpatient (REF) | payer OTHER ==
[2023-01-06 11:51] LABS: HEMATOCRIT 43.1 % (36.0-47.0); HEMOGLOBIN 14.2 g/dl (12.0-15.5); MEAN CORPUSCULAR HEMOGLOBIN 31.8 pg (27.0-33.0); MEAN CORPUSCULAR HGB CONC 32.9 g/dl (32.0-36.5); MEAN CORPUSCULAR VOLUME 96.4 fl (80.0-96.0); PLATELET COUNT, AUTOMATED 243 10^3/uL (150-450); RED BLOOD COUNT 4.47 10^6/uL (4.00-5.40); WHITE BLOOD COUNT 4.2 10^3/uL (4.0-10.0)
[2023-01-06 12:26] LABS: ALBUMIN 3.9 G/DL (3.2-5.2); ALKALINE PHOSPHATASE 83 U/L (46-116); ALT/SGPT 45 U/L (7.0-40); AST/SGOT 27 U/L (<34); BILIRUBIN,TOTAL 0.5 MG/DL (0.3-1.2); BLOOD UREA NITROGEN 13 MG/DL (9-23); CALCIUM LEVEL 9.2 MG/DL (8.5-10.1); CARBON DIOXIDE LEVEL 29 MMOL/L (20-31); CHLORIDE LEVEL 106 MMOL/L (98-107); CHOLESTEROL LEVEL 172 MG/DL (<200); CHOLESTEROL RISK RATIO 3.03 (<5); CREATININE FOR GFR 0.75 MG/DL (0.55-1.30); GLOMERULAR FILTRATION RATE > 60.0 (>51); GLUCOSE, FASTING 93 MG/DL (60-100); HDL CHOLESTEROL 56.7 MG/DL (>40); LDL CHOLESTEROL 96.1 MG/DL (<100); NON-HDL-C 115.3 MG/DL; POTASSIUM SERUM 4.4 MMOL/L (3.5-5.1); SODIUM LEVEL 141 MMOL/L (136-145); TOTAL PROTEIN 6.6 G/DL (5.7-8.2); TRIGLYCERIDES LEVEL 96 MG/DL (<150)
== END ==
LOC: M SFHCCLAY 07:14
PROVIDERS: ATTEND Family Medicine
DX: C54.1 Malignant neoplasm of endometrium (principal); Z13.220 Encounter for screening for lipoid disorders; Z86.711 Personal history of pulmonary embolism

== ENCOUNTER → 2023-02-17 | Outpatient (REF) | payer OTHER ==
[~2023-02-17] MED LIST changes: +CYAN-1 PO; -CYAN100050 PO
[2023-02-17 19:52] LABS: BASO % 0.7 % (0.0-1.0); EOS # 0.1 10^3/uL (0.0-0.5); EOS % 1.2 % (0.0-3.0); HEMATOCRIT 43.7 % (36.0-47.0); HEMOGLOBIN 14.4 g/dl (12.0-15.5); LYMPH # 1.5 10^3/uL (1.5-5.0); LYMPH % 36.5 % (24.0-44.0); MEAN CORPUSCULAR HEMOGLOBIN 30.6 pg (27.0-33.0); MONO # 0.2 10^3/uL (0.0-0.8); MONO % 5.5 % (2.0-8.0); NEUTROPHILS # 2.3 10^3/uL (1.5-8.5); NEUTROPHILS % 56.1 % (36.0-66.0); PLATELET COUNT, AUTOMATED 318 10^3/uL (150-450); WHITE BLOOD COUNT 4.2 10^3/uL (4.0-10.0)
[2023-02-17 20:19] LABS: THYROID STIMULATING HORMONE 1.238 uIU/ML (0.55-4.78)
[2023-02-17 21:46] LABS: ALBUMIN 4.1 G/DL (3.2-5.2); ALKALINE PHOSPHATASE 103 U/L (46-116); ALT/SGPT 46 U/L (7.0-40); AST/SGOT 22 U/L (<34); BILIRUBIN,TOTAL 0.6 MG/DL (0.3-1.2); BLOOD UREA NITROGEN 15 MG/DL (9-23); CALCIUM LEVEL 9.5 MG/DL (8.5-10.1); CARBON DIOXIDE LEVEL 30 MMOL/L (20-31); CHLORIDE LEVEL 106 MMOL/L (98-107); GLOMERULAR FILTRATION RATE > 60.0 (>51); GLUCOSE, FASTING 96 MG/DL (60-100); POTASSIUM SERUM 5.4 MMOL/L (3.5-5.1); SODIUM LEVEL 141 MMOL/L (136-145); TOTAL PROTEIN 6.9 G/DL (5.7-8.2)
== END ==
LOC: M SFHCCLAY 09:15
PROVIDERS: ATTEND Physician Assistant Medical
DX: R06.02 Shortness of breath (principal)

== ENCOUNTER → 2023-02-17 | Outpatient (CLI) | payer BC, OTHER | LOC: M CLY 09:22 | PROVIDERS: ATTEND Physician Assistant Medical | DX: R06.02 Shortness of breath (principal) ==